=== PATIENT | female | born 1940 | race Caucasian/White ===

== ENCOUNTER 2025-01-31 12:06 | Emergency (ER) | payer MEDICARE, BC, SELFPAY ==
[2025-01-31 12:17] VITALS: BP 162/89
[2025-01-31 12:38] LABS: % Basophils 0.7 % (0-2); % Eosinophils 3.8 % (0-6); % Immature Granulocytes 0.5 % (0-0.5); % Lymphocytes 22.7 % (20.5-51.1); % Monocytes 10.6 % (1.7-9.3); % Neutrophils 61.7 % (42.2-75.2); Absolute Basophils 0.1 10^3/uL (0-0.2); Absolute Eosinophils 0.4 10^3/uL (0-0.7); Absolute Immature Granulocytes 0.1 10^3/uL (0-0.05); Absolute Lymphocytes 2.1 10^3/uL (1.2-3.4); Absolute Neutrophils 5.8 10^3/uL (1.4-6.5); Hematocrit 44.6 % (37.0-47.0); Hemoglobin 15.1 g/dL (12.0-16.0); Mean Corp Hgb Conc. 33.9 g/dL (33.0-37.0); Mean Corpuscular Hgb 31.4 pg (27.0-31.0); Mean Corpuscular Volume 92.7 fL (81.0-99.0); Mean Platelet Volume 10.3 fL (7.4-10.4); Nucleated Red Blood Cells % 0 %; Platelet Count 282 10^3/uL (130-400); Red Blood Cell Count 4.81 10^6/uL (4.20-5.40); Red Cell Dist. Width 14.3 % (11.5-14.5); White Blood Cell Count 9.4 10^3/uL (4.8-10.8)
[2025-01-31 12:44] LABS: ALT (SGPT) 30 U/L (0-35); AST (SGOT) 44 U/L (14-36); Albumin 3.5 g/dl (3.5-5.0); Alkaline Phosphatase 83 U/L (38-126); Blood Urea Nitrogen 20 mg/dl (7-17); Calcium 9.3 mg/dl (8.4-10.2); Carbon Dioxide 26 mmol/L (22-30); Chloride 108 mmol/L (98-107); Glucose 104 mg/dl (70-99); Sodium 140 mmol/L (135-145); Total Bilirubin 0.8 mg/dl (0.2-1.3); Total Protein 6.8 g/dl (6.3-8.2); eGFR 48.94
[2025-01-31 14:30] VITALS: BP 144/85
[2025-01-31 15:12] VITALS: BMI 29.0
--- NOTE | 2025-01-31 16:39 | ED.GENMED ---
History of Present Illness
General
Chief Complaint: Fatigue
Source: patient
Exam Limitations: none
Time Seen by Provider: 01/31/25 16:28
History of Present Illness
History of Present Illness:
See MDM
Past History
Past History
ED Past Medical History: Arrthythmia
ED Past Surgical History: Appendectomy and Orthopedic
Social History
Tobacco: Non-smoker
Alcohol: None
Phy Exam
Physical Exam
Physical Exam:
See MDM
Course
Orders/Labs/Results
Orders:
Orders
01/31/25 12:19
CMP [Comprehensive Metabolic Panel] Urgent
Complete Blood Count/With Diff Urgent
01/31/25 16:36
Electrocardiogram (*1) Urgent
Reason for Study: Fatigue / Weakness
EKG- Treatment ONCE
01/31/25 16:38
0.9% Sodium Chloride 500 ml [Nss] 500 ml IV BOLUS
01/31/25 16:42
Urinalysis Reflex To Culture Urgent
Date Specimen was Collected: 01/31/25
Time Specimen was Collected: 16:39
Urine Microscopic Reflex Cult Urgent
Urine Culture Urgent
SANA Source: U
Specimen Description:
Date Specimen was Collected: 01/31/25
Time Specimen was Collected: 16:39
01/31/25 17:25
Fosfomycin [Monurol] 3 gm PO ONCE ONE
Abnormal Lab Results
01/31/25 01/31/25
12:19 16:42
MCH 31.4 H pg
(27.0-31.0)
Abs Immat Gran (auto) 0.1 H 10^3/uL
(0-0.05)
Absolute Monos (auto) 1.0 H 10^3/uL
(0.1-0.6)
Monocytes % 10.6 H %
(1.7-9.3)
Chloride 108 H mmol/L
(98-107)
BUN 20 H mg/dl
(7-17)
Creatinine 1.1 H mg/dL
(0.6-1.0)
Glucose 104 H mg/dl
(70-99)
AST 44 H U/L
(14-36)
Ur Occult Blood Reflex 2+ A
(Negative)
Leukocyte Esterase Rfl 1+ A
(Negative)
Urine Bacteria (Reflex) Many A
(Negative)
Urine Albumin (Reflex) 2+ A
(Neg - Trace)
01/31/25 12:19
01/31/25 12:19
Vital Signs
Initial and Last Documented VS:
Initial Vital Signs
Temp Pulse Resp Pulse Ox
98.1 F 63 18 93
01/31/25 12:12 01/31/25 12:12 01/31/25 12:12 01/31/25 12:12
Last Documented Vital Signs
Temp Pulse Resp BP Pulse Ox
98.1 F 76 20 144/85 97
01/31/25 12:12 01/31/25 14:30 01/31/25 14:30 01/31/25 14:30 01/31/25 14:30
MDM/Problems Addressed
Differential Diagnosis Includes:
HPI and MDM Narrative:
84-year-old female presenting for evaluation of bilateral leg weakness. She states her legs are weak below her knees. Patient states she had a very similar episode in September where she was admitted and then went to rehab. Initially thought it was
her A-fib. She apparently was cardioverted several times which was unsuccessful which required increase of her medications. She was then admitted to [facility] a few weeks ago for leg weakness. At that time, they thought she could have pneumonia.
She was on antibiotics for a few days and believes that she felt better. She states she was still somewhat weak when she was discharged. For the past 3 days, patient states she has been sleeping more and having trouble getting out of bed. She
states she is a decreased appetite.
On my evaluation, patient is sitting in bed comfortably. She has no leg weakness on exam. Muscle strength 5/5. Patellar reflexes intact. Blood work was done prior to my assessment showing very mild elevated BUN and creatinine. Will give 500 mL
of IV fluid. Will obtain urinalysis given age and complaint. Lungs are clear.
Patient states that she wants to go home. I did offer admission for further workup and evaluation but patient does not feel like that she needs to be admitted. I did offer case management evaluation for rehab placement but patient also does not
want go back to rehab.
Physical exam
General: Well appearing and non-toxic
HEENT: protecting airway. Very mild dry mucous membranes
Neck: appears supple
CV: No evidence of cyanosis
Resp: No accessory muscle use. Lungs clear
Abd: Non-distended
Extremities: No deformities. Muscle strength intact in both legs. Patellar reflexes +2
Neuro: alert
Psych: Normal affect
Skin: Intact
Problems Addressed including Acute and Chronic Conditions affecting care:
1. Bilateral leg weakness
Acuity: acute
Prognosis: stable
Details: Will obtain urinalysis
2. Mild elevation in BUN and creatinine
Acuity: acute
Prognosis: stable
Details: No baseline to compare to. Will give small dose of fluids
Updates
Urine shows questionable UTI. Will give dose of fosfomycin. Again, patient states she feels comfortable going home
Differential Diagnosis (but not limited to): Dehydration, UTI
Testing considered: Chest x-ray but she denies chest pain or shortness of breath
Drug therapy (if applicable): OTC meds, please see d/c instruction regarding Rx drugs
Amount and/or Complexity of Data Reviewed
Clinical info obtained from: Patient
External data reviewed: N/A
Labs I independently reviewed (but not limited to): Creatinine and BUN mildly elevated
Radiology: N/A
Pulse Ox: not hypoxic
EKG independently reviewed: A-fib, right bundle branch block, no STEMI
[employer]: N/A
Critical Care: N/A
Risk of Complication:
Social Determinants of health: Good social support
Discussed with other providers: N/A
Escalation of Care includes Admit/Obs: After being observed in the Emergency Department, pt stable for discharge.
Occasional wrong word or 'sound a like' substitutions may have occurred due to the inherent limitations of voice recognition software. Read the chart carefully and recognize, using context, where substitutions have occurred.
*Critical Care Note
Total Time (30-74mins, 75-104mins- exclusive of procedures): Not Applicable
ED Attending Note
-
Portions of this chart may have been created with voice recognition software.� Occasional wrong word or��sound alike� substitutions may have occurred due to the inherent limitations of voice recognition software.
Discharge Plan
Departure
Patient Disposition: Home (Routine Discharge)
Date of Disposition: 01/31/25
Time of Disposition: 17:32
Patient with high blood pressure during this ER visit?: Yes
Discharge Problem:
Acute UTI
Instructions: Urinary Tract Infection, Adult (DC), Generalized Weakness (DC), BLOOD PRESSURE
Referrals:
Joce Blanco DO [Family Provider] -
Activity Restrictions/Additional Instructions:
Please return for any worsening symptoms.
You may return at any time if you have further concerns.
Please follow up with your doctor at the first available appointment, preferably this week.
Thank you for choosing [facility].
Interventions
Interventions:
*Risk Screen - Suicide Last Done: 01/31/25 12:12
*General Assessment Last Done: 01/31/25 12:12
*Neglect/Abuse Screening Last Done: 01/31/25 14:00
*ED- Fall Risk Assessment Last Done: 01/31/25 15:15
*ED COVID-19 Vaccine History Last Done: 01/31/25 15:15
Discharge Date and Time
Print Language: WOLOF
[2025-01-31 17:05] LABS: Urine Albumin 2+ (Neg - Trace); Urine Bilirubin Negative (Negative); Urine Character Slightly Cloudy (Clear); Urine Color Yellow; Urine Glucose Negative (Negative); Urine Ketone Negative (Negative); Urine Leukocyte 1+ (Negative); Urine Nitrite Negative (Negative); Urine Occult Blood 2+ (Negative); Urine Urobilinogen Negative (Neg - 1+)
[2025-01-31] MEDS: NSS 500 IV (17:06)
[2025-01-31 17:18] LABS: Urine Bacteria Many (Negative); Urine Red Blood Cell 0-2 /HPF (0-2)
[2025-01-31] MEDS: MONUROL 3 GM PO (17:55)
== END 2025-01-31 18:20 | disposition home or self-care (01) ==
LOC: EMR 12:06
PROVIDERS: Emergency Medicine; EMERGENCY PHYSICIAN Student in an Organized Health Care Education/Training Program; FAMILY PHYSICIAN Family Medicine Adult Medicine
DX: N39.0 Urinary tract infection, site not specified (principal); I48.91 Unspecified atrial fibrillation; Z90.49 Acquired absence of other specified parts of digestive tract
CPT/HCPCS: 99283; 80053; 81003; 81015; 85025; 87086; 93005